=== PATIENT | male | born 1980 | race Caucasian/White ===

== ENCOUNTER 2017-09-13 12:40 | Emergency (ER) | payer MEDICAID ==
[~2017-09-13] VITALS: Ht 182.9 cm; Wt 87.0 kg
[2017-09-13] MEDS ORDERED: CefTRIAXone 1000mg IM Kit (w/lidocaine diluent) IM ONE (13:50)
[2017-09-13] MEDS ORDERED: SULF1TAB49 PO (13:53)
[2017-09-13] MEDS ORDERED: CEPH-572 PO (13:53)
[2017-09-13 15:15] VITALS: BP 148/90
== END 2017-09-13 14:45 | disposition home or self-care (01) ==
LOC: ER 12:41
DX: L02.414 Cutaneous abscess of left upper limb (principal)
CPT/HCPCS: 96372; 99283; J0696

== ENCOUNTER 2020-04-17 21:54 | Emergency (ER) | payer MEDICAID ==
[~2020-04-17] VITALS: Ht 182.9 cm; Wt 90.9 kg
[2020-04-17 21:57] VITALS: BP 134/76
--- NOTE | 2020-04-17 22:25 | NUR ---
went to get the patient, he was leaving. Encouraged him to stay. He went back to his room, MD now in room with him.
[2020-04-17] MEDS ORDERED: ciprofloxacin 0.3% 2.5ml ophthalmic solution EACHEYE ONE (22:40)
[2020-04-17] MEDS ORDERED: proparacaine 0.5% ophthalmic drops 15ml EACHEYE ONE (22:40)
[2020-04-17] MEDS ORDERED: diazepam 5mg tablet PO ONE (22:40)
[2020-04-17] MEDS ORDERED: CIPR2.5D21 EACHEYE (22:43)
== END 2020-04-17 23:05 | disposition home or self-care (01) ==
LOC: ER 21:55
DX: L57.0 Actinic keratosis (principal); H57.13 Ocular pain, bilateral; R09.81 Nasal congestion; F17.200 Nicotine dependence, unspecified, uncomplicated; Z86.69 Personal history of other diseases of the nervous system and sense organs; Z79.2 Long term (current) use of antibiotics
CPT/HCPCS: 99283